=== PATIENT | female | born 1965 | race Caucasian/White ===

== ENCOUNTER 2019-11-26 09:33 | Emergency (ER) | payer OTHER, SELFPAY ==
[2019-11-26 09:41] VITALS: BP 130/101; PULSE 59; RESP 17; TEMP 36.9; O2SAT 100
--- NOTE | 2019-11-26 09:43 | ED.ARRPALP ---
HPI - Arrhythmia/Palpitations General Chief Complaint: Arrhythmia/Palpitations Stated Complaint: palpitations Time Seen by Provider: 11/26/19 09:36 Source: patient Mode of arrival: ambulatory Limitations: no limitations History of Present Illness HPI narrative: Pt is a 54 y/o female who presents to the ED with c/o intermittent palpitations that worsened this morning. Pt states that she has a H/O PVC's, but normally gets them once a month. She notes that in the last week she has been getting them every day. This morning she went for a walk and when she sat down to get some work done she had a long run of PVC's that were stronger than normal. She reports her chest fluttering and feeling lightheaded, but denies CP or SOB. Pt states that she has been eating and drinking normally. MD complaint: palpitations Duration: intermittent Context: occurred during rest Arrhythmia history: other (PVC's) Associated symptoms: other (lightheadedness, chest fluttering) Related Data Home Medications Medication Instructions Recorded Confirmed No Home Medications 11/26/19 11/26/19 Allergies Allergy/AdvReac Type Severity Reaction Status Date / Time No Known Allergies Allergy Verified 11/26/19 09:40 Review of Systems Review of Systems: All systems reviewed & are unremarkable except as noted in HPI and below Constitutional: Constitutional: Denies poor appetite Cardiovascular: Cardiovascular: Denies chest pain, Reports lightheadedness, Reports palpitations and Reports other (chest fluttering) Respiratory: Respiratory: Denies dyspnea PMFSH Past Medical History Medical History Anemia Arthritis Bronchitis Clavicle fracture IBS (irritable bowel syndrome) Migraine MVP (mitral valve prolapse) PVC (premature ventricular contraction) Rectal bleeding Right hand fracture Surgical History Surgical History No significant past surgical history Social History Social History Smoking status: Never smoker Alcohol intake: current Gender identity (if verbalized by the patient): Female Exam Const: General: healthy appearing, no acute distress and alert Orientation/consciousness: patient oriented x3 HENMT: Head: normal to inspection Neck: Neck: normal visual inspection Chest: Chest palpation & inspection: no tenderness Resp: Effort & Inspection: normal respiratory effort Auscultation: clear to auscultation bilaterally, no rales, no rhonchi and no wheezes Cardio: Jugular venous distension: no JVD Rate: regular rate Rhythm: regular rhythm Heart sounds: no murmurs GI: Inspection: non-distended GI Palp: Yes Soft to palpation and No Tenderness to palpation present (GI) Skin: General skin exam: normal color Neuro: General: patient oriented x3 and moves all extremities Speech: normal speech Extrem: General: no edema Psych: Appearance: well kempt Affect: normal affect Course Vital Signs Vital signs: Vital Signs Temperature 36.9 C 11/26/19 09:41 Pulse Rate 59 L 11/26/19 09:41 Respiratory Rate 17 11/26/19 09:41 Blood Pressure 130/101 H 11/26/19 09:41 Pulse Oximetry 100 11/26/19 09:41 Temperature 36.9 C 11/26/19 09:41 Pulse Rate 76 11/26/19 13:12 Respiratory Rate 14 11/26/19 13:12 Blood Pressure 116/60 11/26/19 13:12 Pulse Oximetry 100 11/26/19 13:12 MDM - Arrhythmia/Palpitations MDM Narrative Medical decision making narrative: SHe has been having occasional PVCs on tele. Never consecutive. She has had moderate bradycardia, but denies symptoms related to this. She should be safe for discharge at this time. Medical Records Attestation: I reviewed the patient's medical records. Lab Data Attestation: I reviewed the patient's lab results. Result diagrams: 11/26/19 09:58 11/26/19 09:58 Labs: Lab Results
--- NOTE | 2019-11-26 09:50 | ECG_ITS ---
Measurements Intervals [place] Rate: 54 P: 34 [place]: 137 QRS: -26 QRSD: 102 T: 35 QT: 448 QTc: 427 Interpretive Statements SINUS BRADYCARDIA INCOMPLETE RIGHT BUNDLE BRANCH BLOCK BORDERLINE T WAVE ABNORMALITY- INFERIOR LEADS BORDERLINE ECG Electronically Signed On 11-26-2019 14:07:12 CDT by Jimenez Horne D.O.
--- NOTE | 2019-11-26 09:55 | PC.NURSE ---
dr palma aware of pt having pvs's.
[2019-11-26] MEDS: SODIUM CHLORIDE 0.9% IV 1,000 ML 999 ML IV CONT (09:59)
[2019-11-26 10:05] LABS: Basophils Absolute Auto 0.1 K/mm3 (0.0-0.1); Basophils Percent Auto 0.8 % (0.2-1.2); Eosinophils Absolute Auto 0.1 K/mm3 (0-0.3); Eosinophils Percent Auto 1.1 % (0-4.4); Hematocrit 37.8 % (37.0-47.0); Hemoglobin 12.5 g/dL (12.0-15.0); Immature Granulocyte Absolute 0.02 K/mm3 (0.00-0.031); Immature Granulocyte Percent A 0.3 % (0-0.5); Lymphocytes Absolute Auto 2.06 K/mm3 (0.9-3.2); Lymphocytes Percent Auto 30.9 % (18.3-44.2); Mean Corpuscular HGB Conc 33.1 g/dl (32-36); Mean Corpuscular Volume 99.7 fl (80-100); Mean Platelet Volume 10.9 fl (7.4-10.4); Monocytes Absolute Auto 0.5 K/mm3 (0.1-0.6); Neutrophils Absolute Auto 3.9 K/mm3 (1.3-6.7); Neutrophils Percent Auto 58.9 % (45.5-73.1); Platelet Count Result 234 k/mm3 (150-375); Red Blood Count 3.79 M/mm3 (4.2-5.4); Red Cell Distribution Width 11.8 % (11.5-14.5); White Blood Count 6.7 K/mm3 (4.5-10.0)
[2019-11-26 10:16] LABS: Blood Urea Nitrogen 11 mg/dL (7-17); Calcium 9.1 mg/dL (8.4-10.2); Carbon Dioxide 26 mmol/L (22-30); Chloride 104 mmol/L (98-107); Estimated CRCL calculation 82 ml/min; Estimated Glomerular Filt Rate > 60; Glucose 93 mg/dL (65-105); Potassium 3.8 mmol/L (3.4-5.0); Sodium 137 mmol/L (137-145)
[2019-11-26 10:27] LABS: Troponin I < 0.012 ng/mL (0.000-0.034)
[2019-11-26 10:45] VITALS: BP 112/69; PULSE 50; RESP 16; O2SAT 100
[2019-11-26 11:53] VITALS: BP 117/67; PULSE 52
[2019-11-26 11:54] VITALS: BP 113/72; PULSE 55
[2019-11-26 11:55] VITALS: BP 112/67; BP 118/74; PULSE 54; PULSE 57; RESP 16; O2SAT 100
[2019-11-26 13:12] VITALS: BP 116/60; PULSE 76; RESP 14; O2SAT 100
== END 2019-11-26 13:14 | disposition home or self-care (01) ==
PROVIDERS: Emergency Provider Emergency Medicine
DX: I49.3 Ventricular premature depolarization (principal); M19.90 Unspecified osteoarthritis, unspecified site; K58.9 Irritable bowel syndrome, unspecified; I34.1 Nonrheumatic mitral (valve) prolapse; I45.10 Unspecified right bundle-branch block; R94.31 Abnormal electrocardiogram [ECG] [EKG]
CPT/HCPCS: 36415; 80048; 84484; 85025; 93005; 96360; 99284; J7030

== ENCOUNTER → 2022-08-14 08:52 | Outpatient (CLI) | payer OTHER, SELFPAY ==
--- NOTE | ~2022-08-14 | MMUS_ITS ---
EXAMINATION: MM diagnostic lavelle BI w [place], US breast BI complete HISTORY: Palpable left breast abnormality. TECHNIQUE: Additional 3-D tomosynthesis images of the breasts were performed and synthetic 2-D images were generated. CAD analysis was submitted and interpreted. High resolution bilateral complete breas t ultrasound was performed. COMPARISON: Comparison to multiple prior studies sequentially, with oldest reviewed study dated 05/25. BREAST PARENCHYMAL COMPOSITION: The breasts are heterogeneously dense, which may obscure small masses FINDINGS: MAMMOGRAPHIC FINDINGS: There are no suspicious masses, calcifications or architectural distortion in either breast to sugges t malignancy. ULTRASOUND: Complete bilateral US of all 4 quadrants of the breasts and retroareolar region was reviewed. There a re in numerable bilateral breast cysts. In the left breast at 11:00, 4 cm from the nipple in the area palpable concern there is an oval hypoechoic mass with low level internal echoes measuring 7 x 4 x 5 mm. There is circumscribed margins, parallel orientation, no significant posterior features. Also at this location there is a 9 x 4 x 7 mm oval hypoechoic mass with enhanced through transmission, paral lel orientation and circumscribed margins, likely a complicated cyst. The remainder of the masses are cystic throughout both breasts. IMPRESSION: 1. Probable benign left breast masses at 11:00, 4 cm from the nipple in the area palpable concern. 2. Recommend 6 month follow-up left breast ultrasound BI-RADS category 3, probably benign findings. Reviewed, dictated and finalized at location A. [employer] IMPRESSION: 1. Probable benign left breast masses at 11:00, 4 cm from the nipple in the are a palpable concern. 2. Recommend 6 month follow-up left breast ultrasound BI-RADS category 3, probably benign findings.
== END ==
PROVIDERS: PCP Internal Medicine; Visit Provider Internal Medicine
DX: N64.4 Mastodynia (principal); N63.22 Unspecified lump in the left breast, upper inner quadrant
CPT/HCPCS: 76641; 77062; 77066; G0279

== ENCOUNTER → 2022-12-10 09:43 | Outpatient (CLI) | payer OTHER, SELFPAY ==
--- NOTE | ~2022-12-10 | XR_ITS ---
Clinical Indication: Cough PA and lateral views of the chest: Comparison: None Findings: The lungs are clear, without evidence of focal consolidation or pleural effusion. Cardiome diastinal silhouette is within normal limits. Bones and soft tissues are unremarkable. Impression: Normal chest. Reviewed, dictated and finalized at location . Impression: Normal chest.
== END ==
PROVIDERS: PCP Internal Medicine; Visit Provider Internal Medicine
DX: U07.1 COVID-19 (principal)
CPT/HCPCS: 71046

== ENCOUNTER 2024-03-15 06:47 | Outpatient (CLI) | payer OTHER, SELFPAY ==
--- NOTE | ~2024-03-15 | CT_ITS ---
EXAMINATION: CT abdomen pelvis w con DATE: 03/15/2024 07:20 INDICATION: Left inguinal lymphadenopathy and left abdominal pain TECHNIQUE: Computed tomography (CT) of the abdomen and pelvis was performed with 100 mL Omnipaque-350 intravenous contrast. Automated exposure control and iterative reconstruction technique were employe d. The dose-length product was 410.39 mGy-cm. COMPARISON: None FINDINGS: Mild dependent atelectasis in the bilateral lower lungs. Heart size is normal. No pericardial or pleu ral effusion. Liver, gallbladder, spleen, pancreas, bilateral adrenal glands and kidneys are normal. Bowels including the appendix are normal. Bladder is normal. There are several small cystic-appearing lesions along the transitional zone at the uterine fundus which could be seen with adenomyosis. Bila teral adnexa are unremarkable. No free intraperitoneal gas or fluid. No pathologically enlarged abdom inal, pelvic or inguinal lymphadenopathy. Sacralized L5 segment. Moderate to severe lower thoracic an d mild lumbar spondylosis. IMPRESSION: 1. No acute intra-abdominal/pelvic process. 2. No pathologically enlarged abdominal, pelvic or inguinal lymphadenopathy. 3. Few small cystic areas along the transitional zone with uterine fundus suggestive of adenomyosis. Reviewed, dictated and finalized at location A. IMPRESSION: 1. No acute intra-abdominal/pelvic process. 2. No pathologically enlarged abdominal, pelvic or inguinal lymphadenopathy. 3. Few small cystic areas along the transitional zone with uterine fundus sugge stive of adenomyosis.
== END 2024-03-15 06:48 | disposition home or self-care (01) ==
PROVIDERS: PCP Internal Medicine; Visit Provider Nurse Practitioner
DX: R59.0 Localized enlarged lymph nodes (principal)
CPT/HCPCS: 74177; Q9967

== ENCOUNTER 2024-05-12 01:36 | Day surgery (SDC) | payer OTHER, SELFPAY ==
[2024-04-23 09:41] VITALS: BMI 26.1
--- NOTE | 2024-05-11 14:58 | P.PNAN_ITS ---
Anes - Initial Pre Proc Eval Procedure: Operation Date: 05/12/24 11:00 Proposed Procedures p Colonoscopy - João North MD Date/Time: 05/11/24 14:58 Surgeon: João North MD Pre Op Diagnosis: Melena, IBS, Anal fissure, Abdominal pain Patient Data Age: 58 Gender: F Height: 1.73 m Weight: 78 kg Allergies Allergy/AdvReac Type Severity Reaction Status Date / Time loratadine [From Claritin] AdvReac Other Verified 05/10/24 14:52 Home Medications Medication Instructions Recorded Confirmed Type estradiol-norethindrone acet 1 1 tablet PO DAILY #84 tabs 05/10/24 05/10/24 Rx mg-0.5 mg tablet (Activella) sumatriptan succinate 25 mg tablet 50 mg PO PRN PRN Migraine Headache 05/10/24 05/10/24 History Patient hx anesthesia problems: none Family hx anesthesia problems: none Results Review: All pre-operative results and documents have been reviewed as part of the pre- operative evaluation. [facility] Past Medical History Medical History Anemia Arthritis Bronchitis Clavicle fracture IBS (irritable bowel syndrome) Migraine MVP (mitral valve prolapse) PVC (premature ventricular contraction) Rectal bleeding Right hand fracture Screening mammogram for breast cancer Surgical History Surgical History H/O hand surgery tumor removed, tendon repaired H/O knee surgery r knee 2018 l knee 2019 Family History Family History Grandparent Breast cancer Other Heart disease Social History Social History Smoking status: Never smoker Alcohol intake: current Drinks per week: 4 Substance use: current Other substance usage details: liang Lack of Transportation: No Lack of Food: Never True Current Housing: I Have Housing Concerned About Future Housing: No Difficulty Paying Gas/Electric Bills: No Difficulty Paying for Meds: No Currently Unemployed: No Education: Bachelor's Degree Difficulty w/ Childcare or Family Care: No Living arrangements: with family Occupation/Education: occupation 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 Gender identity (if verbalized by the patient): Female Sexual Orientation (if Verbalized by the Patient): Straight or Heterosexual Spiritual care concerns: No Anes - Eval Final PreProcedure Day of Procedure 05/11/24 14:58 Patient weight: normal Heart: regular rate and rhythm Lungs: clear to auscultation Airway: Mallampati scale class II Neurological: alert and oriented Last oral intake: >/= 8 hours ASA classification: II Emergent: no Anesthetic plan: proceed Anesthesia type and monitoring: general GIVS and standard monitoring Results Review: All pre-operative results and documents have been reviewed as part of the pre- operative evaluation. Informed Consent: The patient's anesthetic plan and its attendant risks and benefits were discussed with the patient/family/POA. Questions were solicited and answers provided to the satisfaction of the patient/family/POA.
[2024-05-12 09:50] VITALS: BP 122/78; PULSE 59; RESP 18; TEMP 36.6; O2SAT 100
[2024-05-12 09:53] LABS: BEDSIDEPREGUCG Negative (Negative)
[2024-05-12] MEDS: LACTATED RINGERS 1,000 ML 150 ML IV CONT (09:58)
--- NOTE | 2024-05-12 11:08 | PM.HPGS ---
History of Present Illness History of Present Illness Consent: Risks, benefits, and alternatives have been discussed and questions answered. Patient agrees to proceed with procedure. Chief complaint: Melena, IBS, Anal fissure, Abdominal pain Narrative: Anna Iqbal is a 58 year old female with ibs, abdominal cramping, last colonoscopy 2015 Review of Systems Review of Systems: All systems reviewed & are unremarkable except as noted in HPI and below PMFSH Past Medical History Medical History Anemia Arthritis Bronchitis Clavicle fracture IBS (irritable bowel syndrome) Migraine MVP (mitral valve prolapse) PVC (premature ventricular contraction) Rectal bleeding Right hand fracture Screening mammogram for breast cancer Surgical History Surgical History H/O hand surgery tumor removed, tendon repaired H/O knee surgery r knee 2018 l knee 2019 Family History Family History Grandparent Breast cancer Other Heart disease Social History Social History Smoking status: Never smoker Alcohol intake: current Drinks per week: 4 Substance use: current Other substance usage details: gummies Lack of Transportation: No Lack of Food: Never True Current Housing: I Have Housing Concerned About Future Housing: No Difficulty Paying Gas/Electric Bills: No Difficulty Paying for Meds: No Currently Unemployed: No Education: Bachelor's Degree Difficulty w/ Childcare or Family Care: No Living arrangements: with family Occupation/Education: occupation 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 Gender identity (if verbalized by the patient): Female Sexual Orientation (if Verbalized by the Patient): Straight or Heterosexual Spiritual care concerns: No Meds Home Medications and Allergies Home Medications Medication Instructions Recorded Confirmed Type estradiol-norethindrone acet 1 1 tablet PO DAILY #84 tabs 05/10/24 05/12/24 Rx mg-0.5 mg tablet (Activella) sumatriptan succinate 25 mg tablet 50 mg PO PRN PRN Migraine Headache 05/10/24 05/12/24 History Allergies Allergy/AdvReac Type Severity Reaction Status Date / Time loratadine [From Claritin] AdvReac Other Verified 05/12/24 09:42 Vital Signs Vital Signs - 24 hr 05/12/24 09:50 Temperature 98 F Pulse Rate 59 L Respiratory Rate 18 Blood Pressure 122/78 Pulse Oximetry 100 Oxygen Delivery Room Air Exam Const: General: comfortable and no acute distress HENMT: Face/Nose/Sinus: Normal nares present Eyes: General: appearance normal, both eyes and all related structures Neck: Neck: no JVD Resp: Auscultation: clear to auscultation bilaterally Cardio: Rate: regular rate Rhythm: regular rhythm GI: Inspection: non-distended GI Palp: Yes Soft to palpation Skin: General skin exam: normal color Neuro: General: gait normal Speech: normal speech Extrem: General: normal to inspection Psych: Mental Status: mental status grossly normal Assessment and Plan Assessment and plan (1) Irritable bowel syndrome with constipation: Code(s): K58.1 - Irritable bowel syndrome with constipation Status: Acute Assessment and Plan: colonoscopy (2) Left sided abdominal pain: Code(s): R10.9 - Unspecified abdominal pain Status: Acute
[2024-05-12 11:29] VITALS: BP 98/59; PULSE 66; RESP 22; O2SAT 100
[2024-05-12 11:39] VITALS: BP 96/61; PULSE 57; RESP 19; O2SAT 100
[2024-05-12 11:49] VITALS: BP 111/72; PULSE 53; RESP 16; O2SAT 100
== END 2024-05-12 10:55 | disposition home or self-care (01) ==
PROVIDERS: Anesthesiology; PCP Internal Medicine; Referring Provider Nurse Practitioner; Visit Provider Internal Medicine Gastroenterology
PROC: 0DJD8ZZ Inspection of Lower Intestinal Tract, Via Natural or Artificial Opening Endoscopic (ICD-10-PCS; CPT 45378; principal; 2024-05-12 11:00)
DX: K64.8 Other hemorrhoids (principal); D64.9 Anemia, unspecified; K58.1 Irritable bowel syndrome with constipation; I34.1 Nonrheumatic mitral (valve) prolapse; I49.3 Ventricular premature depolarization; F12.90 Cannabis use, unspecified, uncomplicated; Z98.890 Other specified postprocedural states; Z80.3 Family history of malignant neoplasm of breast; Z82.49 Family history of ischemic heart disease and other diseases of the circulatory system
CPT/HCPCS: 45378; J2001; J2704; J7120

== ENCOUNTER 2024-06-10 07:49 | Outpatient (CLI) | payer OTHER, SELFPAY ==
--- NOTE | 2024-06-10 11:49 | P.PCNPFT_ITS ---
PFT Procedure Performed PFT Procedure Performed Plethysmography (Lung Vol) Diffusing Cap (DLCO) Flow Vol Loop Spirometry w/o Bronchodil PFT Interpretation Lung volumes were measured with the body plethysmography method. Lung volumes are unremarkable. Spirometry showed a normal expiratory flow rates and a bor derline normal FEV1 to FVC ratio of 68%. No post bronchodilator study was conducted. Lung diffusion capacity is within the normal range at 85% predicted. The flow-volume loop is unremarkable. Impression: Spirometry, lung volumes, and lung diffusion capacity all within the normal range.
== END 2024-06-10 07:50 | disposition home or self-care (01) ==
PROVIDERS: PCP Internal Medicine; Visit Provider Internal Medicine Cardiovascular Disease
DX: R06.09 Other forms of dyspnea (principal)
CPT/HCPCS: 94375; 94726; 94729

== ENCOUNTER 2024-06-14 11:29 | Outpatient (CLI) | payer OTHER, SELFPAY ==
[2024-06-14 13:01] LABS: Hematocrit 37.6 % (37.0-47.0); Hemoglobin 12.8 g/dL (12.0-15.0)
== END 2024-06-14 11:30 | disposition home or self-care (01) ==
LOC: ANHSURGERY 11:34
PROVIDERS: PCP Internal Medicine; Visit Provider Student in an Organized Health Care Education/Training Program
DX: Z01.812 Encounter for preprocedural laboratory examination (principal); N95.0 Postmenopausal bleeding
CPT/HCPCS: 36415; 85014; 85018

== ENCOUNTER 2024-06-17 00:49 | Day surgery (SDC) | payer OTHER, SELFPAY ==
[2024-06-11 09:49] VITALS: BMI 25.9
--- NOTE | 2024-06-11 09:56 | PC.NURSE ---
Report to the Outpatient Waiting Room, entrance under the green pavilion located off [facility], at time _1000_ on date _06-17-24_. Planned Procedure Time: _1200_.? Time changes happen often and if your time is changed the preop area will call you the afternoon before. - You and your visitor will be asked to self-screen and do not enter if you have any COVID symptoms. Please call surgeon if you need to reschedule. - A mask is optional within the hospital at this time. Patients may have clear liquids (water, carbonated beverages, clear teas, apple juice) until 3 hours prior to surgery with a maximum of 20 ounces. - No food from midnight until time of surgery and no smoking Take only the following medications with a SIP of water on the morning of surgery: __None DO NOT STOP ANY OF YOUR OTHER PRESCRIPTION MEDICATIONS PRIOR TO SURGERY EXCEPT THE FOLLOWING Medications to discontinue per physician ____All vitamins Date to take last trfz___[id number]____ Please no make-up, nail malay, hairspray, perfume, deodorant, or body powder the day of surgery.? No jewelry (including any body piercings) or valuables the day of surgery, leave them at home.? Please take a shower or bath the night before, or the morning of, surgery with an antibacterial soap.? Wear comfortable, loose fitting clothing.? - Jewelry must be removed prior to entering the operating room.? Rings and piercings that are not removed may be cut off. - The hospital will not accept responsibility for valuables.? - Please leave all valuables, including medications, at home the day of surgery. If you are going home after surgery, a licensed hazmat truck driver must drive you home.? - NO public transportation without another adult if you receive anesthesia. - We recommend that an adult stay with you for 24 hours following discharge. - We also recommend that you do not drive, make important decision, drink alcoholic beverages, or take any drugs that were not prescribed by your health care provider for at least 24 hours after your discharge time. Follow any additional instructions given to you from your surgeon. Telephone instructions given to __Amanda__and asked if any additional questions and then verbalized understanding. Patient advised to call surgeon office or pre surgery nurse liaison [phone] if any additional questions.
--- NOTE | 2024-06-16 09:06 | P.HP_ITS ---
H&P: HPI History of Present Illness Date/Time: 06/16/24 09:06 Chief Complaint: postmenopausal bleeding thickened endometrium on pelvic US Narrative: 58-year-old female who presents for hysteroscopy D&C regarding postmenopausal bleeding. Patient continues to have on and off vaginal bleeding. Patient states most recently she had a episode of old menstrual like bleeding. Patient's pelvic ultrasound showed a thickened endometrial lining at 9 mm. Review of Systems Cardiovascular: Cardiovascular: Denies chest pain, Denies leg edema, Denies palpitations, Denies dyspnea and Denies dyspnea on exertion Respiratory: Respiratory: Denies cough, Denies dyspnea and Denies dyspnea on exertion Gastrointestinal: Gastrointestinal: Denies abdominal pain, Denies constipation, Denies diarrhea, Denies nausea and Denies vomiting Genitourinary: Genitourinary: Denies hematuria, Denies urinary frequency, Denies dysuria, Denies pelvic pain, Denies urinary incontinence and Denies vaginal discharge Neurologic: Reports system reviewed and no additional complaints, except as documented Psychiatric: Psychiatric: Reports no additional psychiatric complaints Endocrine: Endocrine: Denies palpitations PMFSH Past Medical History Medical History Anemia Arthritis Bronchitis Clavicle fracture IBS (irritable bowel syndrome) Migraine MVP (mitral valve prolapse) PVC (premature ventricular contraction) Rectal bleeding Right hand fracture Screening mammogram for breast cancer Surgical History Surgical History H/O hand surgery tumor removed, tendon repaired H/O knee surgery r knee 2018 l knee 2019 Family History Family History Grandparent Breast cancer Other Heart disease Social History Social History Smoking status: Never smoker Alcohol intake: current Drinks per week: 4 Substance use: current Other substance usage details: liang Lack of Transportation: No Lack of Food: Never True Current Housing: I Have Housing Concerned About Future Housing: No Difficulty Paying Gas/Electric Bills: No Difficulty Paying for Meds: No Currently Unemployed: No Education: Bachelor's Degree Difficulty w/ Childcare or Family Care: No Living arrangements: with family Occupation/Education: occupation 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 Gender identity (if verbalized by the patient): Female Sexual Orientation (if Verbalized by the Patient): Straight or Heterosexual Spiritual care concerns: No Meds Home Medications and Allergies Home Medications Medication Instructions Recorded Confirmed Type sumatriptan succinate 25 mg tablet 50 mg PO PRN PRN Migraine Headache 05/10/24 06/16/24 History cholecalciferol (vitamin D3) 125 125 mcg PO DAILY 06/11/24 06/16/24 History mcg (5,000 unit) tablet (Vitamin D3) magnesium 250 mg tablet 250 mg PO DAILY 06/11/24 06/16/24 History vitamin D3 125 mcg (5,000 1 cap PO DAILY 06/11/24 06/16/24 History unit)-vitamin K2 180 mcg capsule estradiol-norethindrone acet 0.5 1 tablet PO DAILY 06/16/24 06/16/24 History mg-0.1 mg tablet pharmacy compounding accessory See Rx Instructions miscellaneous 06/16/24 06/16/24 Rx .COMPLEX #1 ea Allergies Allergy/AdvReac Type Severity Reaction Status Date / Time loratadine [From Claritin] AdvReac Other Verified 06/16/24 08:43 Exam Const: General: no acute distress Eyes: EOM: EOMs intact bilaterally Neck: Neck: supple Thyroid: thyroid normal Chest: Breast/axilla inspection: normal inspection of the breasts Breast/axilla palpation: normal palpation of the breasts, normal palpation of the axillae and no axillary lymphadenopathy Resp: Effort & Inspection: normal respiratory effort Auscultation: clear to auscultation bilaterally Cardio: Rate: regular rate Rhythm: regular rhythm GI: Inspection: non-distended GI Palp: Yes Soft to palpation, No Tenderness to palpation present (GI) and No Guarding due to palpation present (GI) Auscultation: normal bowel sounds : General: No bladder normal to palpation External Female Exam: normal external appearance Speculum Exam - Vagina: normal vaginal discharge and No vaginal bleeding Speculum Exam - Cervix: nontender Bimanual exam- vagina & uterus: No bladder normal to palpation and No Cervical tenderness present OB/external & speculum: No vaginal bleeding Skin: General skin exam: normal color and no rashes or lesions noted Neuro: Cognition (Neuro): normal cognition Speech: normal speech Extrem: General: normal to inspection and no edema Psych: Mental Status: mental status grossly normal Affect: normal affect Assessment and Plan Assessment and plan (1) Endometrial thickening on ultrasound: Code(s): R93.89 - Abnormal findings on diagnostic imaging of other specified body structures Status: Acute Assessment and Plan: 58-year-old female who presents hysteroscopy D&C for postmenopausal bleeding Patient had pelvic ultrasound which showed a thickened endometrial lining at 9 mm Patient currently taking Activella Ultrasound results reviewed with patient Recommended tissue sampling Discussed in office EMB versus hysteroscopy D&C Risks and benefits of each reviewed Will plan for hysteroscopy D&C in the operating room
[2024-06-17] MEDS: LACTATED RINGERS 1,000 ML 30 ML IV CONT (06:45)
[2024-06-17] MEDS: ACETAMINOPHEN 500 MG TABLET 1000 MG PO (06:45)
--- NOTE | 2024-06-17 06:45 | P.PNAN_ITS ---
Anes - Initial Pre Proc Eval Procedure: Operation Date: 06/17/24 07:30 Proposed Procedures p Hysteroscopy Dilation and Curettage - Neo Ramos MD Date/Time: 06/17/24 06:45 Surgeon: Neo Ramos MD Pre Op Diagnosis: Post Menopasual Bleeding Patient Data Age: 59 Gender: F Height: 1.73 m Weight: 77.3 kg Allergies Allergy/AdvReac Type Severity Reaction Status Date / Time loratadine [From Claritin] AdvReac Other Verified 06/16/24 08:43 Home Medications Medication Instructions Recorded Confirmed Type sumatriptan succinate 25 mg tablet 50 mg PO PRN PRN Migraine Headache 05/10/24 06/16/24 History cholecalciferol (vitamin D3) 125 125 mcg PO DAILY 06/11/24 06/16/24 History mcg (5,000 unit) tablet (Vitamin D3) magnesium 250 mg tablet 250 mg PO DAILY 06/11/24 06/16/24 History vitamin D3 125 mcg (5,000 1 cap PO DAILY 06/11/24 06/16/24 History unit)-vitamin K2 180 mcg capsule estradiol-norethindrone acet 0.5 1 tablet PO DAILY 06/16/24 06/16/24 History mg-0.1 mg tablet pharmacy compounding accessory See Rx Instructions miscellaneous 06/16/24 06/16/24 Rx .COMPLEX #1 ea Patient hx anesthesia problems: none Family hx anesthesia problems: none Results Review: All pre-operative results and documents have been reviewed as part of the pre- operative evaluation. [facility] Past Medical History Medical History Anemia Arthritis Bronchitis Clavicle fracture IBS (irritable bowel syndrome) Migraine MVP (mitral valve prolapse) PVC (premature ventricular contraction) Rectal bleeding Right hand fracture Screening mammogram for breast cancer Surgical History Surgical History H/O hand surgery tumor removed, tendon repaired H/O knee surgery r knee 2018 l knee 2019 Family History Family History Grandparent Breast cancer Other Heart disease Social History Social History Smoking status: Never smoker Alcohol intake: current Drinks per week: 4 Substance use: current Other substance usage details: gummies Lack of Transportation: No Lack of Food: Never True Current Housing: I Have Housing Concerned About Future Housing: No Difficulty Paying Gas/Electric Bills: No Difficulty Paying for Meds: No Currently Unemployed: No Education: Bachelor's Degree Difficulty w/ Childcare or Family Care: No Living arrangements: with family Occupation/Education: occupation 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 Gender identity (if verbalized by the patient): Female Sexual Orientation (if Verbalized by the Patient): Straight or Heterosexual Spiritual care concerns: No Anes - Eval Final PreProcedure Day of Procedure 06/17/24 06:45 Patient weight: normal Heart: regular rate and rhythm Lungs: clear to auscultation Airway: Mallampati scale class II Neurological: alert and oriented Last oral intake: >/= 8 hours ASA classification: II Emergent: no Anesthetic plan: proceed Anesthesia type and monitoring: general GIVS and standard monitoring Results Review: All pre-operative results and documents have been reviewed as part of the pre- operative evaluation. Informed Consent: The patient's anesthetic plan and its attendant risks and benefits were discussed with the patient/family/POA. Questions were solicited and answers provided to the satisfaction of the patient/family/POA.
[2024-06-17 07:00] VITALS: BP 123/73; PULSE 66; TEMP 36.8; O2SAT 100; BMI 26.2
--- NOTE | 2024-06-17 07:18 | WPDHPUPDATE1 ---
History and Physical Update Update Date/Time: 06/17/24 07:18 History and Physical has been reviewed, including an updated exam of the patient. There are NO changes in the patient's condition. Risks, benefits, and alternatives have been discussed and questions answered. Patient agrees to proceed with procedure.
[2024-06-17 07:51] VITALS: BP 113/67; PULSE 62; RESP 20; O2SAT 99
--- NOTE | 2024-06-17 07:51 | W.PM.PROC2 ---
Procedure Note - Detailed Date of Procedure 06/17/24 Pre-op Diagnosis Post Menopasual Bleeding thickened endometrium on pelvic US Post-op Diagnosis Same Procedure Performed hysteroscopy dilation & curettage Surgeon Neo Ramos MD Anesthesia General Indications postmenopausal uterine bleeding Findings globally thickened intrauterine cavity. Normal tubal ostia bilaterally Description of Procedure Anna Iqbal presents for hysteroscopy D&C. She was counseled as to the indications, risks, benefits, and alternatives to surgery, with the risks including bleeding, infection, damage to surrounding organs, VTE, and complications of anesthesia. Her verbal and written consent was obtained. PROCEDURE: The patient was taken to the OR and general anesthesia induced. She was prepped and draped in Darron stirrups with support of the back and bilateral lower extremities. I/O catheterization performed of the bladder. The above findings were noted. A single tooth tenaculum was placed on the anterior lip of the cervix. The uterus sounded to 8 cm. The cervix was dilated with sequential Carola dilators. Hysteroscopy, using a normal saline medium, was performed and showed the above findings. Sharp uterine curettage was then performed and tissue placed on Telfa. The tenaculum was removed and hemostasis was observed. The patient tolerated the procedure well. Sponge, lap, and needle counts were correct. The patient had SCD's on throughout the case for VTE prophylaxis. The patient was taken to the recovery room in stable condition. Estimated Blood Loss 5 Drains No Packing No Pathology Yes (endometrial curettings ) Complications No immediate complications Condition Stable Disposition PACU [facility] Billing Surgery - Charge Forward: Surgery Billing
[2024-06-17] MEDS: fentaNYL CITRATE INJ (*CRX) 100 MCG/2 ML VIAL 25 MCG IV PUSH (08:02)
[2024-06-17 08:15] VITALS: BP 110/68; PULSE 48; RESP 20
[2024-06-17] MEDS: oxyCODONE HCL (*CRX) 5 MG TAB IR PO (08:27)
[2024-06-17 08:45] VITALS: BP 117/72; PULSE 48; RESP 20
[2024-06-17 08:55] VITALS: BP 115/74; PULSE 53; RESP 20
== END 2024-06-17 09:02 | disposition home or self-care (01) ==
PROVIDERS: PCP Internal Medicine; Visit Provider Student in an Organized Health Care Education/Training Program
PROC: 0U5B8ZZ Destruction of Endometrium, Via Natural or Artificial Opening Endoscopic (ICD-10-PCS; CPT 58563; principal; 2024-06-17 07:30)
DX: N95.0 Postmenopausal bleeding (principal)
CPT/HCPCS: 58558; 88305; A9270; J2003; J2250; J2704; J3010; J7120